=== PATIENT | male | born 1990 | race Hispanic/Latino ===

== ENCOUNTER → 2023-07-27 07:34 | Outpatient (REF) | payer OTHER, SELFPAY | LOC: HWRAD 07:34 | PROVIDERS: ATTENDING PHYSICIAN Nurse Practitioner Family | DX: R79.89 Other specified abnormal findings of blood chemistry (principal); R74.01 Elevation of levels of liver transaminase levels | CPT/HCPCS: 76700 ==

== ENCOUNTER 2024-05-18 11:10 | Emergency (ER) | payer OTHER, SELFPAY ==
[2024-05-18 11:12] VITALS: BP 143/89; BMI 30.4
--- NOTE | 2024-05-18 11:51 | ED.GENMED ---
History of Present Illness
General
Chief Complaint: Cough
Source: patient
Time Seen by Provider: 05/18/24 11:22
History of Present Illness
History of Present Illness:
33-year-old male presents to the emergency room complaining of cough, shortness of breath, and left flank pain. Patient began with the symptoms couple days ago. The left thoracic/flank pain has increased in severity. The pain wraps around to the
front of his abdomen. It is worse with movement and deep breaths. No nausea or vomiting. Patient does feel some increased urinary frequency but no dysuria.
Past History
Past History
ED Past Medical History: None
ED Past Surgical History: None
Social History
Tobacco: Non-smoker
Alcohol: None
Phy Exam
Physical Exam
Physical Exam:
General: Awake, Alert, Oriented X3. No acute distress.
Vitals: unremarkable
Head: Atraumatic
Eyes: Pupils equal, EOMI
Throat: Airway intact, no exudates
Neck: Trachea midline
Lungs: Clear and equal b/l
Heart: Regular rate, no murmurs
Abd: Soft, Nontender, No pulsatile mass
Back: Mild left CVA tenderness to percussion.
Neuro: Nonfocal
Skin: Warm, dry, no rash
Extremities: pulses equal b/l, no edema
Course
Orders/Labs/Results
Orders:
Orders
05/18/24 11:18
Electrocardiogram (*1) Urgent
Reason for Study: Chest Pain
EKG- Treatment ONCE
05/18/24 11:49
0.9% Sodium Chloride 500 ml [Nss] 500 ml IV BOLUS
Ketorolac [Toradol] 15 mg IV NOW STA
CR Chest - 2 Views Urgent
Comment:
Reason For Exam: left lower chest/flank pian, cough
05/18/24 11:59
COVID-19 Antigen Urgent
Source: Nasal Swab
Complete Blood Count/With Diff Urgent
Comprehensive Metabolic Panel Urgent
Influenza A+B Rapid Molecular Urgent
DELPHINE Source: Nasal Swab
Specimen Description:
05/18/24 12:06
UA Reflex to Culture [Urinalysis Reflex To Culture] Urgent
Date Specimen was Collected: 05/18/24
Time Specimen was Collected: 12:03
Urine Microscopic Reflex Cult Urgent
05/18/24 12:33
CT Abd/pel Without Iv Or Oral Urgent
Comment:
Reason For Exam: left flank pain
05/18/24 13:11
D-Dimer Urgent
Abnormal Lab Results
05/18/24 05/18/24
11:59 12:06
Absolute Monos (auto) 0.7 H 10^3/uL
(0.1-0.6)
Glucose 122 H mg/dl
(70-99)
AST 65 H U/L
(17-59)
ALT 122 H U/L
(0-50)
Ur Occult Blood Reflex 2+ A
(Negative)
Urine Bacteria (Reflex) Few A
(Negative)
05/18/24 11:59
05/18/24 11:59
Vital Signs
Initial and Last Documented VS:
Initial Vital Signs
Temp Pulse Resp BP Pulse Ox
98.8 F 106 20 143/89 98
05/18/24 11:12 05/18/24 11:12 05/18/24 11:12 05/18/24 11:12 05/18/24 11:12
Last Documented Vital Signs
Temp Pulse Resp BP Pulse Ox
98.8 F 82 18 109/74 99
05/18/24 11:12 05/18/24 14:40 05/18/24 14:40 05/18/24 14:40 05/18/24 14:40
MDM/Problems Addressed
Differential Diagnosis Includes:
Kidney stone, pneumonia, muscle strain
MDM/Problems Addressed:
Patient presents with mild cough developed some left sided flank and abdominal discomfort. Patient's urine was mildly positive for blood on the dipstick. Chest x-ray shows no acute abnormality. Flu and COVID are negative. CT without contrast
shows findings suggestive of epiploic appendagitis. Patient stable for discharge
*Pulse Oximetry
Patient hypoxic: no
*Relish Maker Interpretation
Rate: normal
Interpretation: normal
Rhythm: sinus
*Critical Care Note
Total Time (30-74mins, 75-104mins- exclusive of procedures): Not Applicable
ED Attending Note
-
Portions of this chart may have been created with voice recognition software.� Occasional wrong word or��sound alike� substitutions may have occurred due to the inherent limitations of voice recognition software.
Discharge Plan
Departure
Patient Disposition: Home (Routine Discharge)
Date of Disposition: 05/18/24
Time of Disposition: 14:25
Patient with high blood pressure during this ER visit?: No
Condition: Good
Discharge Problem:
Epiploic appendagitis
Instructions: Abdominal Pain
Prescriptions:
No Action
cyclobenzaprine 10 MG tablet
10 mg PO TIDPRN PRN (Reason: spasm) Qty: 14 0RF
diclofenac sodium 25 MG tablet,delayed release (DR/EC)
25 mg PO QID PRN (Reason: pain) Qty: 20 0RF
Referrals:
Cathy Hess [Family Provider] -
Activity Restrictions/Additional Instructions:
Your CAT scan shows that you have an area of inflammation around your colon refer to his epiploic appendagitis. This is a benign condition which will heal on its own. You can take Tylenol and Motrin every 6 hours for pain.
Interventions
Interventions:
*Risk Screen - Suicide Last Done: 05/18/24 11:16
*General Assessment Last Done: 05/18/24 11:53
*Neglect/Abuse Screening Last Done: 05/18/24 11:53
*ED COVID-19 Vaccine History Last Done: 05/18/24 11:12
*Nursing Disposition Last Done: 05/18/24 14:41
ED- Pulmonary Assessment Last Done: 05/18/24 12:08
Discharge Date and Time
Discharge Date/Time: 05/18/24 14:42
Print Language: [place]
[2024-05-18] MEDS: NSS 500 IV (12:05)
[2024-05-18] MEDS: TORADOL 15 MG IV (12:05)
[2024-05-18 12:13] LABS: % Basophils 0.4 % (0-2); % Eosinophils 1.1 % (0-6); % Immature Granulocytes 0.2 % (0-0.5); % Lymphocytes 23.3 % (20.5-51.1); % Monocytes 8.6 % (1.7-9.3); % Neutrophils 66.4 % (42.2-75.2); Absolute Eosinophils 0.1 10^3/uL (0-0.7); Absolute Monocytes 0.7 10^3/uL (0.1-0.6); Absolute Neutrophils 5.6 10^3/uL (1.4-6.5); Hematocrit 46.5 % (39.0-52.0); Hemoglobin 15.7 g/dL (13.0-18.0); Mean Corp Hgb Conc. 33.8 g/dL (33.0-37.0); Mean Corpuscular Hgb 29.7 pg (27.0-31.0); Mean Corpuscular Volume 87.9 fL (80.0-94.0); Mean Platelet Volume 9.8 fL (7.4-10.4); Nucleated Red Blood Cells % 0 % (-); Platelet Count 262 10^3/uL (130-400); Red Blood Cell Count 5.29 10^6/uL (4.70-6.10); Red Cell Dist. Width 12.5 % (11.5-14.5); White Blood Cell Count 8.5 10^3/uL (4.8-10.8)
[2024-05-18 12:19] LABS: Urine Albumin Negative (Neg - Trace); Urine Bilirubin Negative (Negative); Urine Character Clear (Clear); Urine Color Yellow; Urine Glucose Negative (Negative); Urine Ketone Negative (Negative); Urine Leukocyte Negative (Negative); Urine Nitrite Negative (Negative); Urine Occult Blood 2+ (Negative); Urine Urobilinogen Negative (Neg - 1+)
[2024-05-18 12:21] LABS: ALT (SGPT) 122 U/L (0-50); AST (SGOT) 65 U/L (17-59); Albumin 4.3 g/dl (3.5-5.0); Alkaline Phosphatase 72 U/L (38-126); Blood Urea Nitrogen 20 mg/dl (9-20); COVID-19 Antigen Negative (Negative); Calcium 9.7 mg/dl (8.4-10.2); Carbon Dioxide 26 mmol/L (22-30); Chloride 104 mmol/L (98-107); Estimated Creatinine Clearance 109 ml/min; Glucose 122 mg/dl (70-99); Potassium 4.5 mmol/L (3.5-5.1); Sodium 138 mmol/L (135-145); Total Bilirubin 0.8 mg/dl (0.2-1.3); Total Protein 7.3 g/dl (6.3-8.2); eGFR > 60.00
[2024-05-18 12:33] LABS: Urine Bacteria Few (Negative); Urine Red Blood Cell 0-2 /HPF (0-2); Urine White Cell 0-2 /HPF (0-5)
[2024-05-18 13:13] VITALS: BP 126/75
[2024-05-18 13:43] LABS: D-Dimer < 0.27 ug/mlFEU (0.00-0.50)
[2024-05-18 14:40] VITALS: BP 109/74
== END 2024-05-18 14:42 | disposition home or self-care (01) ==
LOC: EMR 11:10
PROVIDERS: EMERGENCY PHYSICIAN Emergency Medicine
DX: K63.89 Other specified diseases of intestine (principal); R05.9 Cough, unspecified; R10.9 Unspecified abdominal pain; R06.02 Shortness of breath; Z11.52 Encounter for screening for COVID-19
CPT/HCPCS: 99285; 96374; 96361; 71046; 74176; 80053; 81003; 81015; 85025; 85379; 87502; 87811; 93005

== ENCOUNTER → 2024-07-17 15:43 | Outpatient (REF) | payer OTHER, SELFPAY | LOC: HWRCS 15:43 | PROVIDERS: ATTENDING PHYSICIAN Internal Medicine Cardiovascular Disease; FAMILY PHYSICIAN Nurse Practitioner Family | DX: R94.31 Abnormal electrocardiogram [ECG] [EKG] (principal); R06.02 Shortness of breath | CPT/HCPCS: 93306 ==

== ENCOUNTER → 2024-07-31 12:57 | Outpatient (REF) | payer OTHER, SELFPAY | LOC: RCS 12:57 | PROVIDERS: ATTENDING PHYSICIAN Internal Medicine Cardiovascular Disease; FAMILY PHYSICIAN Nurse Practitioner Family | DX: R94.31 Abnormal electrocardiogram [ECG] [EKG] (principal); R06.02 Shortness of breath | CPT/HCPCS: 93017 ==